=== PATIENT | female | born 1935 | race African-American/Black ===

== ENCOUNTER 2018-10-09 16:18 | Inpatient (IN) ==
--- NOTE | 2018-10-09 17:43 | Diag Imaging Result Doc PS360 ---
EXAM: CT HEAD W/O CONTRAST HISTORY: possible CVA TECHNIQUE: CT head without contrast COMPARISON: None. FINDINGS: No parenchymal hemorrhage. No epidural or subdural hematoma. No subarachnoid hemorrhage. There is atrophy with chronic microvascular ischemic changes. Hypodense area measuring approximately 12 mm near the anterior horn of the right internal capsule may represent a recent infarct. No mass identified on this noncontrasted exam. No hydrocephalus. No sinus opacification. IMPRESSION: 1.No hemorrhage 2.Mild atrophy with mild chronic microvascular ischemic changes 3.Possible recent small infarct near the anterior horn of the right internal capsule. A follow-up MRI may be beneficial. This exam was performed using automated exposure control, adjustment of mA or kV according to patient size, and/or use of iterative reconstruction technique. Electronically signed by Giovanny Brown 10/09/2018 5:40 PM
[2018-10-09 18:20] LABS: BASO# 0.03 X1000 (0.0-0.2); BASO% 0.4 % (0.0-0.8); EOS# 0.04 X1000 (0.0-0.7); EOS% 0.5 % (0.0-10.0); HEMATOCRIT 27.6 % (37.0-47.0); HEMOGLOBIN 8.4 g/dL (12.0-16.0); IMM GRAN# 0.02 X1000 (0.0-0.04); IMM GRAN% 0.2 % (0.0-0.5); LYMPH# 1.83 X1000 (1.2-3.4); LYMPH% 22.4 % (20.5-51.1); MCH 24.4 PG (27-31); MCHC 30.4 g/dL (33-37); MCV 80.2 FL (81-99); MONO# 0.54 X1000 (0.11-0.59); MONO% 6.6 % (1.7-9.3); MPV 8.8 FL (7.4-10.4); NEUT# 5.72 X1000 (1.4-6.5); NEUT% 69.9 % (42.2-75.2); PLT 535 X1000 (130-400); RBC 3.44 XMIL (4.2-5.4); RDW 15.3 % (11.5-14.5); WBC 8.18 X1000 (4.8-10.8)
[2018-10-09 18:37] LABS: AGAP 17; ALBUMIN 4.4 g/dL (3.5-5.0); ALKALINE PHOSPHATASE 43 U/L (32-104); BUN 10 mg/dL (8-22); CALCIUM 9.4 mg/dL (8.8-10.2); CHLORIDE 102 mmol/L (98-107); COSMO 286; CREATININE 0.8 mg/dL (0.5-0.9); ESTIMATED GFR > 60; GLUCOSE 99 mg/dL (70-104); GOT 32 U/L (10-30); GPT 15 U/L (10-36); SODIUM 144 mmol/L (136-145); TCO2 25 mmol/L (25-35); TOTAL PROTEIN 7.9 g/dL (6.3-8.3)
[2018-10-09 18:41] LABS: INR 0.97; PROTIME 13.4 Seconds (11.0-16.0)
[2018-10-09 18:42] LABS: PTT 36.7 Seconds (22.3-41.8)
--- NOTE | 2018-10-09 20:27 | EKG Report ---
Test Performed on : 10/09/2018 5:57:20 PM Test Reason : CVA Blood Pressure : / mmHG Vent. Rate : 090 BPM Atrial Rate : 090 BPM P-R Int : 136 ms QRS Dur : 078 ms QT Int : 378 ms P-R-T Axes : 000 -05 -15 degrees QTc Int : 462 ms Sinus rhythm. with premature supraventricular complexes. and with occasional premature ventricular co mplexes. Possible Left atrial enlargement Low voltage QRS Nonspecific T wave abnormality Abnormal ECG When compared with ECG of 09-JUN-2010 13:01, premature ventricular complexes. are now present premature supraventricular complexes. are now present Inverted T waves have replaced nonspecific T wave abnormality in Inferior leads T wave inversion now evident in Lateral leads Unconfirmed Result
[2018-10-09] MEDS ORDERED: TYLENOL PO PRN (22:15)
[2018-10-09] MEDS ORDERED: ZOFRAN IV PRN (22:15)
--- NOTE | 2018-10-09 22:17 | HISTORY AND PHYSICAL ---
CHIEF COMPLAINT: Difficulty with speech and wobbly walking. HISTORY OF PRESENT ILLNESS: This is an 83-year-old female who presented today with dysarthria, left-sided facial droop, and abnormal speech. She stated in the ER she awoke this morning with symptoms, but she told me she had symptoms the day before, the . There was no headache, chest pain. She has no previous history of CVA or TIA. She does have a history possibly of some hypertension but no major medical problems. No family history of CVA. Her persistence in speech deficits, and she also reports some difficulty walking with listing to the left side but sometimes the right. Clinically, was felt to have a possible stroke. Workup in the ER was negative. However, her head CT did show possibly an early stroke in the right internal capsule. The patient was admitted for CVA. PAST MEDICAL HISTORY: Again, unclear if she has any history of hypertension, but no diabetes, no previous stroke. PAST SURGICAL HISTORY: She has had a hysterectomy. No other major surgeries. SOCIAL HISTORY: No tobacco or ethanol. She has a remote history of tobacco. ALLERGIES: No known drug allergies. MEDICATIONS: None are listed. I am not clear if she has anything, but I do not think she takes regular medications. REVIEW OF SYSTEMS: There is no weight loss. No appetite change. No chest pain. No palpitations. No shortness of breath. No nausea, vomiting, diarrhea, hematochezia. No dysuria. Otherwise negative [id number] review of systems. PHYSICAL EXAMINATION: VITAL SIGNS: Blood pressure is 177/81, heart rate 95, respiratory rate 16, temperature 98.6 degrees. GENERAL: A well-developed female in no acute distress. HEENT: Head exam is normocephalic atraumatic. Eye exam: Pupils equal, round, reactive to light. Sclerae are anicteric. ENT: Oropharynx is moist and clear. NECK: Supple. Carotid, no bruits appreciated. PULMONARY: Bilateral breath sounds clear to auscultation. GASTROINTESTINAL: Soft, nontender, nondistended. Bowel sounds are positive. NEUROLOGICAL: Some left facial droop, dysarthria with speech, but no other focal cranial nerve deficits. Extraocular movements were intact. Tongue deviated to the left. MUSCULOSKELETAL: 4 to 5 on all 4 extremities, although she seemed a bit weaker on the left side. SKIN: No rashes noted. LABORATORY DATA: White count 8, hemoglobin 8, hematocrit 27, MCV 80. Coags were normal. CMP was normal except for AST was mildly elevated at 32. IMAGING STUDIES: Head CT showed possibly early infarct in the right internal capsule. EKG showed some T wave inversion in III and AVF, otherwise unremarkable. ASSESSMENT: This is a pleasant, 83-year-old female who presents with dysarthria, tongue deviation, and ataxia and then possibly an acute ischemic cerebrovascular accident in the right internal capsule. 1. Cerebrovascular accident. We will continue aspirin. Permissive hypertension. Continue IV fluids. Pursue MRI for better imaging of stroke versus other process. Obtain echo. Obtain carotid, neuro checks, and follow closely. She requests a neurology evaluation so we will attempt to set that up. 2. Microcytic anemia. We will check her iron stores and then also get Hemoccult on her stools and follow closely. 3. Hypertension. Again, allow permissive hypertension unless her blood pressure gets extremely elevated in the setting of acute CVA. DISPOSITION: Pending her clinical setting. cc: MD Jonah Rader MD
[2018-10-09] MEDS: LIPITOR PO SCH (22:50)
[2018-10-09] MEDS: NS 1,000 ML IV SCH (22:50)
[2018-10-10 07:57] LABS: BASO# 0.02 X1000 (0.0-0.2); BASO% 0.3 % (0.0-0.8); EOS# 0.08 X1000 (0.0-0.7); EOS% 1.3 % (0.0-10.0); HEMATOCRIT 24.5 % (37.0-47.0); HEMOGLOBIN 7.2 g/dL (12.0-16.0); IMM GRAN# 0.01 X1000 (0.0-0.04); IMM GRAN% 0.2 % (0.0-0.5); LYMPH# 1.92 X1000 (1.2-3.4); LYMPH% 30.6 % (20.5-51.1); MCH 23.8 PG (27-31); MCHC 29.4 g/dL (33-37); MCV 80.9 FL (81-99); MONO# 0.54 X1000 (0.11-0.59); MONO% 8.6 % (1.7-9.3); MPV 8.9 FL (7.4-10.4); PLT 428 X1000 (130-400); RBC 3.03 XMIL (4.2-5.4); RDW 15.2 % (11.5-14.5); WBC 6.27 X1000 (4.8-10.8)
[2018-10-10 08:01] LABS: AGAP 13; ALBUMIN 3.4 g/dL (3.5-5.0); ALKALINE PHOSPHATASE 33 U/L (32-104); BUN 9 mg/dL (8-22); CALCIUM 8.5 mg/dL (8.8-10.2); CHLORIDE 106 mmol/L (98-107); COSMO 283; CREATININE 0.7 mg/dL (0.5-0.9); ESTIMATED GFR > 60; GLUCOSE 84 mg/dL (70-104); GOT 24 U/L (10-30); GPT 11 U/L (10-36); IRON SATURATION 9 %; POTASSIUM 3.6 mmol/L (3.5-5.1); SODIUM 143 mmol/L (136-145); TCO2 24 mmol/L (25-35); TIBC 334 ug/dL; TOTAL IRON 29 ug/dL (49-151); TOTAL PROTEIN 6.1 g/dL (6.3-8.3); UNBOUND IRON 305 ug/dL (112-346)
[2018-10-10] MEDS ORDERED: LOVENOX SUBQ SCH (09:00)
--- NOTE | 2018-10-10 11:55 | Diag Imaging Result Doc PS360 ---
MRI BRAIN W/WO CONTRAST - 10/10/2018 INDICATION: cva COMPARISON: None FINDINGS: There is restricted diffusion in the small recent lacunar infarction at the right basal ganglia. This involves the caudate head, internal capsule at the anterior limb and genu, and extends down to the striata. There is some chronic microvascular disease in the periventricular cerebral white matter. No mass effect or hemorrhage. No abnormal contrast enhancement. IMPRESSION: MRI confirms recent lacunar infarction in the right basal ganglia region. Electronically signed by Titi Piper 10/10/2018 11:53 AM
[2018-10-10] MEDS: ASPIRIN PO SCH (12:04)
[2018-10-10 12:44] LABS: FERRITIN 8 ng/mL (13-150)
--- NOTE | 2018-10-10 14:38 | PROGRESS NOTE ---
DATE: 10/10/2018 SUBJECTIVE: Patient has no major complaints. OBJECTIVE: Blood pressure is 135/72, heart rate of 81, respiratory rate of 20, temperature was 98, 100% on room air.Cardiovascular: Regular rate and rhythm. Pulmonary: Bilateral breath sounds. Clear to auscultation. Genitourinary: Soft, nontender. Neurologic: She still has her dysarthria issues. LABORATORY: Her white count is 6, hemoglobin and hematocrit 7 and 24, platelets 428,000. Basic was normal. She does have low iron parameters consistent with iron deficiency, so we will initiate therapy. PROBLEM LIST: 1. Acute ischemic CVA, lacunar infarct confirmed on MRI. Waiting on carotid and echo. They have been completed, but I do not have results. We will pursue a CT angiogram. Continue permissive hypertension. Aspirin, statin and follow. 2. Symptomatic anemia, with iron deficiency. I am going to hold her Lovenox. Will just do sequentials and initiate iron supplementation. DISPOSITION: Pending her clinical status and therapy. cc: Alonzo Arriaga MD
[2018-10-10] MEDS: NS 1,000 ML IV SCH ×2 (14:44→22:15)
--- NOTE | 2018-10-10 14:49 | Extremity Venous Study ---
EXAM: Carotid Ultrasound HISTORY: cva TECHNIQUE: Grayscale, duplex, and color Doppler evaluation was performed of the carotid arteries bilaterally. COMPARISON: The FINDINGS: There is no significant atherosclerotic plaque. There are no velocity elevations to suggest hemodynamically significant carotid artery stenosis on the right. Maximal velocity is 110 cm/s. On the left there is elevated systolic velocity distal internal carotid artery 153 cm/s. The vessels are deep and tortuous however. Findings are consistent with a stenosis in the 50-69% range. ICA/CCA ratios are within normal limits. Bilateral vertebral arterial flow is antegrade. IMPRESSION: Tortuous vessels bilaterally. Elevated left internal carotid artery velocity suggestive of stenosis in the 50-69% range. Electronically signed by Mariam Deras 10/10/2018 2:46 PM
[2018-10-10] MEDS ORDERED: VENOFER 200 MG in NS 150 ML IV ONE (15:00)
--- NOTE | 2018-10-10 16:37 | Diag Imaging Result Doc PS360 ---
EXAM: CT ANGIOGRAM HEAD HISTORY: cva TECHNIQUE: CT angiogram of the brain with IV contrast with 3-D postprocessing. COMPARISON: None. FINDINGS: There is atherosclerotic calcification within the cavernous ICAs bilaterally. The intracranial carotid arteries, MCAs, ACAs, rn oncology research, vertebral arteries, and basilar are patent. No vessel cut off or aneurysm is identified. IMPRESSION: Mild intracranial atherosclerotic disease. No large vessel occlusion. This exam was performed using automated exposure control, adjustment of mA or kV according to patient size, and/or use of iterative reconstruction technique. Electronically signed by Mariam Deras 10/10/2018 4:34 PM
--- NOTE | 2018-10-10 17:14 | CONSULTATION ---
DATE OF CONSULTATION: 10/10/2018 REASON FOR CONSULTATION: Stroke. HISTORY OF PRESENT ILLNESS: This is an 83-year-old right-handed female without significant past medical history who presents with stroke. History is from the patient and chart review. The patient says that she began to have symptoms some time on Monday, two days ago. Those symptoms consisted of slurred speech. I believe yesterday she began to have left-sided facial numbness, is what she initially says, and later says a feeling of inability to control the left lower face. Days before, she felt wobbly when she tried to walk. She decided to come to the emergency room yesterday for evaluation. She denied headache or other neurologic symptoms. She did not feel as though she was significantly weak on the left side or elsewhere. No chest pain. No shortness of breath. No loss of consciousness. Head CT on arrival did show hypodensity within the right internal capsular region. MRI performed today showed recent lacunar infarct in the right basal ganglia. Her LDL is 125. HDL 68. Triglycerides of 60. She has been started on low dose aspirin and high potency statin therapy. She is on her way to go down to [facility] after my exam. PAST MEDICAL HISTORY: No significant medical history. There was no personal history of prior stroke. No history of seizure. SOCIAL HISTORY: She denies tobacco, alcohol, or illicits. FAMILY HISTORY: No strokes or seizures. ALLERGIES: No known drug allergies listed in the chart. CURRENT MEDICATIONS: Lipitor 40 mg daily, aspirin 81 mg daily. REVIEW OF SYSTEMS: A balance of 12 was conducted and is otherwise negative except that detailed in the HPI. PHYSICAL EXAMINATION: Vital Signs: She is been afebrile. Blood pressure was 168/93 on admission, today 135/72, pulse 81. Respirations 20, 100% on room air. Ms. Hernandez is supine in bed with the head of bed elevated. She is awake, alert, and oriented. No acute distress. She follows simple and complex commands. Preserved left, right, and digit distinction. No language disturbance on bedside testing. She has some significant dysarthria. Pupils are equal, round, and reactive to light. Gaze conjugate Extraocular movements are intact. Visual little intact to direct confrontational testing. She can hear. She has a left lower facial droop. Facial sensation reported intact. Tongue protrudes to the left. Shoulder shrug is full. Tone is symmetric in the limbs. There is a very subtle left hemiparesis. I can just overcome her left deltoid, triceps, and knee flexion on the left. Otherwise, her strength appears 5/5 in the arms and legs. Sensation reported symmetric in the arms and legs to light touch and pinprick. [id number] intact. Rapid alternating movements intact. HTS intact. Reflexes are 1 to 2+ symmetric throughout. No clonus. Plantar response is flexure on the right and equivocal to up on the left. I did not test her gait. DIAGNOSTIC DATA: MRI of the brain with and without contrast was personally reviewed. It did show an acute lacunar infarct in the right basal ganglia. Head CT also showing hypodensity of the right basal ganglia region. This was also personally reviewed. There is no hemorrhage. Normal white count and coags. Normal sodium, BUN, and creatinine. Blood sugar is 80s and 90s. Triglycerides 60, LDL 125, HDL 68. ASSESSMENT AND PLAN: Right basal ganglia infarct with dysarthria and very subtle left hemiparesis. I agree with the typical stroke workup as you are doing. I would make sure that Speech Therapy clears her for safety in taking p.o. diet. Agree with low-dose aspirin and high potency statin therapy. Agree with cautious blood pressure management as you are doing and seeing if that comes down over time. Avoid hypotension. The patient has gone down for a CTA of the head and I think that is reasonable. Typically this type of infarct is related to chronic hypertension but I am not sure she had a history of that or not. Physical Therapy, Occupational Therapy, and Speech Therapy. Thank you for the consultation. cc: MD Alonzo Baig MD [facility]ITAL[facility]
[2018-10-10] MEDS: LIPITOR PO SCH (22:15)
[2018-10-11] MEDS: NS 1,000 ML IV SCH ×2 (02:35→05:01)
[2018-10-11 07:32] LABS: AGAP 12; BUN 11 mg/dL (8-22); CALCIUM 8.5 mg/dL (8.8-10.2); CHLORIDE 108 mmol/L (98-107); COSMO 286; CREATININE 0.8 mg/dL (0.5-0.9); ESTIMATED GFR > 60; GLUCOSE 86 mg/dL (70-104); POTASSIUM 3.9 mmol/L (3.5-5.1); SODIUM 144 mmol/L (136-145); TCO2 24 mmol/L (25-35)
[2018-10-11 08:15] LABS: BASO# 0.03 X1000 (0.0-0.2); BASO% 0.5 % (0.0-0.8); EOS# 0.11 X1000 (0.0-0.7); EOS% 1.7 % (0.0-10.0); HEMATOCRIT 23.7 % (37.0-47.0); IMM GRAN# 0.01 X1000 (0.0-0.04); IMM GRAN% 0.2 % (0.0-0.5); LYMPH# 1.73 X1000 (1.2-3.4); LYMPH% 26.7 % (20.5-51.1); MCH 24.2 PG (27-31); MCHC 29.5 g/dL (33-37); MONO# 0.56 X1000 (0.11-0.59); MONO% 8.7 % (1.7-9.3); MPV 8.8 FL (7.4-10.4); NEUT# 4.03 X1000 (1.4-6.5); NEUT% 62.2 % (42.2-75.2); PLT 401 X1000 (130-400); RBC 2.89 XMIL (4.2-5.4); RDW 15.4 % (11.5-14.5); WBC 6.47 X1000 (4.8-10.8)
[2018-10-11] MEDS: ASPIRIN PO SCH (09:25)
[2018-10-11] MEDS ORDERED: LACTULOSE PO ONE (10:37)
[2018-10-11] MEDS: ICAR-C PO SCH (11:29)
--- NOTE | 2018-10-11 13:45 | ECHO REPORT ---
ORDER DATE: 10/10/2018 ECHOCARDIOGRAPHIC MEASUREMENTS: 1. Interventricular septum 1.0. 2. Left ventricular posterior wall 1.0. 3. Diastolic diameter 4.0. 4. Left atrium 3. 5. Aorta 3.5. SUMMARY: 1. Aortic valve leaflets were trileaflet. 2. Pulmonic valve was normal. There is trace pulmonary regurgitation. 3. There is mild aortic sclerosis opening normally, aortic valve leaflets. 4. Mitral valve was normal. There is mitral annular calcification. 5. Tricuspid valve was normal. 6. There is biatrial enlargement. 7. Normal left ventricular cavity size. Estimated ejection fraction of 65%. 8. Doppler studies revealed mild mitral regurgitation. Peak velocity across the aortic valve less than 2 m/sec. By Doppler studies, there is no aortic stenosis or regurgitation. 9. There is mild tricuspid regurgitation. Peak velocity across the tricuspid valve was less than 2 m/sec. 10. There is mild pulmonary regurgitation. 11. Technically suboptimal study. Poor acoustic window. 12. There is no pericardial effusion or obvious intracardiac mass or thrombus seen. cc: MD Alonzo Beltrán MD
[2018-10-11] MEDS ORDERED: COLACE LIQUID ONE ×2 (14:33)
[2018-10-11] MEDS: LACTULOSE PO SCH ×2 (15:11→21:42)
[2018-10-11] MEDS: MIRALAX PO SCH (15:11)
[2018-10-11] MEDS: LIPITOR PO SCH (21:42)
[2018-10-12 06:40] LABS: BASO# 0.04 X1000 (0.0-0.2); BASO% 0.5 % (0.0-0.8); EOS# 0.15 X1000 (0.0-0.7); EOS% 1.7 % (0.0-10.0); HEMATOCRIT 27.7 % (37.0-47.0); HEMOGLOBIN 8.2 g/dL (12.0-16.0); IMM GRAN# 0.01 X1000 (0.0-0.04); IMM GRAN% 0.1 % (0.0-0.5); LYMPH# 2.52 X1000 (1.2-3.4); LYMPH% 28.8 % (20.5-51.1); MCH 23.6 PG (27-31); MCHC 29.6 g/dL (33-37); MCV 79.6 FL (81-99); MONO% 9.1 % (1.7-9.3); MPV 8.9 FL (7.4-10.4); NEUT# 5.23 X1000 (1.4-6.5); NEUT% 59.8 % (42.2-75.2); PLT 380 X1000 (130-400); RBC 3.48 XMIL (4.2-5.4); RDW 16.5 % (11.5-14.5); WBC 8.75 X1000 (4.8-10.8)
[2018-10-12] MEDS: ICAR-C PO SCH (08:37)
[2018-10-12] MEDS: ASPIRIN PO SCH (08:37)
[2018-10-12] MEDS: MIRALAX PO SCH (08:38)
[2018-10-12] MEDS: LACTULOSE PO SCH (08:38)
[2018-10-12 15:05] VITALS: BP 150/61
--- NOTE | 2018-10-13 09:42 | DISCHARGE SUMMARY ---
ADMISSION DATE: 10/09/2018 DISCHARGE DATE: 10/12/2018 CONSULTATIONS: Dr. Malorie Ruiz with Neurology. PERTINENT PROCEDURES: 1. Head CT: No hemorrhage. Mild atrophy with mild chronic microvascular ischemic changes, possible recent small infarct near the anterior horn of the right internal capsule. 2. Brain MRI: Confirms recent myocardial infarction in the right basal ganglia region. 3. Echocardiogram: An EF of 65%. Mild mitral regurgitation, mild tricuspid regurgitation and mild pulmonary regurgitation. 4. Carotid Dopplers: Torturous vessels bilaterally. Elevated left internal carotid artery velocity suggestive of stenosis in the 50 to 69 percent range. 5. Head CTA: Mild intracranial atherosclerotic disease. No large vessel occlusion. DISCHARGE DIAGNOSES: 1. Right basal ganglia infarct with dysarthria, very subtle left hemiparesis. The patient has undergone stroke workup. We will continue with high-dose statin, low-dose aspirin. She is not on any antihypertensive medications. 2. The patient has been evaluated by physical therapy, occupational therapy and speech therapy. Currently tolerating a healthy heart diet and is anxious to get home. 3. Symptomatic anemia with iron deficiency. We will continue with Icar C. She was given 1 unit of packed red blood cells. She will need to follow up with Hematology on an outpatient basis. 4. Hypertension. Patient is not on any home medications at home. HOSPITAL COURSE: Briefly, Ms. Hernandez is an 83-year-old female, who presented to the ED with dysarthria, left-sided facial droop, abnormal speech. She had woke up with the symptoms in the morning. She underwent a head CT that showed a possible early stroke. She underwent a brain MRI that confirmed recent lacunar infarct in the right basal ganglia region. She underwent a normal workup with echocardiogram, carotid Dopplers, started on aspirin, avoided any hypotension. She also has had a head CTA. She was seen by Cardiology who agreed with aspirin and high-dose statin therapy. She has worked with physical therapy, occupational therapy and evaluated by speech therapy. She is now tolerating a healthy heart diet. She is anxious to return home and wants to follow up with her PCP, Dr. Jonah Del Angel. VITAL SIGNS: At the time of her discharge, temperature is 98.6 degrees, heart rate 79, respirations 20, blood pressure 139/61, O2 is 100% on room air. DISCHARGE DIET: Healthy heart. DISCHARGE MEDICATIONS: 1. Lipitor 40 mg p.o. at bedtime. 2. Aspirin 325 mg p.o. daily. 3. Icar C 1 each p.o. daily. FOLLOWUP: Ms. Hernandez is being discharged home with her . She needs to follow up with her primary care provider, Dr. Jonah Del Angel, within a week. She is to take all medications as prescribed. She can return to the ER or call 911 for any worsening of symptoms. Dictated by JOHN Weston for Alonzo Arriaga MD cc: MD Jonah Rader MD Sammy Becdach, MD
== END 2018-10-12 13:44 | disposition home or self-care (01) | DRG 65 ==
LOC: P.ED 16:18 → P.MEDSURG 21:34
PROVIDERS: ADMIT Internal Medicine; ATTEND Internal Medicine
CPT/HCPCS: 36430; 70450; 70496; 70553; 80048; 80053; 80061; 82607; 82728; 82746; 83540; 83550; 83721; 85025; 85610; 85730; 86850; 86900; 86901; 86920; 92523; 93005; 93306; 93880; 97110; 97161; 97530; 99285; A9270; J1650; J1756; J7030; P9016; Q9967

== ENCOUNTER 2018-10-25 14:44 | Inpatient (IN) ==
[2018-10-25] MEDS ORDERED: ZOSYN 3.375 GM in NS 50 ML IV ONE ×2 (15:29→17:00)
[2018-10-25] MEDS ORDERED: NORCURON ONE (16:10)
[2018-10-25] MEDS ORDERED: AMIDATE ONE (16:10)
[2018-10-25] MEDS ORDERED: FENTANYL ONE (16:10)
[2018-10-25] MEDS ORDERED: XYLOCAINE-MPF 2% ONE (16:10)
[2018-10-25] MEDS ORDERED: STERILE WATER INJ. ONE (16:10)
[2018-10-25] MEDS ORDERED: QUELICIN (DOSE) ONE (16:10)
[2018-10-25] MEDS ORDERED: SODIUM CHLORIDE 0.9% 10 ML ONE ×2 (16:11→17:58)
[2018-10-25 16:43] LABS: BASO# 0.01 X1000 (0.0-0.2); BASO% 0.1 % (0.0-0.8); EOS# 0.05 X1000 (0.0-0.7); EOS% 0.5 % (0.0-10.0); HEMATOCRIT 34.1 % (37.0-47.0); HEMOGLOBIN 10.2 g/dL (12.0-16.0); IMM GRAN# 0.02 X1000 (0.0-0.04); IMM GRAN% 0.2 % (0.0-0.5); LYMPH% 9.8 % (20.5-51.1); MCH 24.9 PG (27-31); MCHC 29.9 g/dL (33-37); MCV 83.2 FL (81-99); MONO# 0.22 X1000 (0.11-0.59); MONO% 2.2 % (1.7-9.3); MPV 8.8 FL (7.4-10.4); NEUT# 8.89 X1000 (1.4-6.5); NEUT% 87.2 % (42.2-75.2); PLT 400 X1000 (130-400); RDW 17.9 % (11.5-14.5); WBC 10.19 X1000 (4.8-10.8)
[2018-10-25 16:52] LABS: AGAP 11; BUN 10 mg/dL (8-22); CALCIUM 8.3 mg/dL (8.8-10.2); CHLORIDE 106 mmol/L (98-107); COSMO 280; CREATININE 0.7 mg/dL (0.5-0.9); ESTIMATED GFR > 60; GLUCOSE 96 mg/dL (70-104); POTASSIUM 4.3 mmol/L (3.5-5.1); SODIUM 141 mmol/L (136-145); TCO2 24 mmol/L (25-35)
[2018-10-25] MEDS ORDERED: MARCAINE 0.25% PF ONE (16:53)
[2018-10-25] MEDS ORDERED: SODIUM CHLORIDE 0.9% 30 ML ONE (16:53)
[2018-10-25] MEDS ORDERED: EXPAREL 1.3% ONE (16:53)
--- NOTE | 2018-10-25 17:15 | Diag Imaging Result Doc PS360 ---
EXAM: FLAT/UPRIGHT ABD/1 VIEW CHEST HISTORY: Perforated bowel/secum TECHNIQUE: Flat and upright with chest, three views COMPARISON: None. FINDINGS: The lungs are well expanded. No pneumonia. No cardiomegaly. There is free air beneath the diaphragm. No organomegaly. No bowel obstruction. No abnormal abdominal calcifications. IMPRESSION: Free air beneath the diaphragm consistent with the clinical diagnosis of perforated bowel. Electronically signed by Giovanny Brown 10/25/2018 5:13 PM
[2018-10-25 17:23] LABS: BANDS 1 % (0-1); EOS 2 % (1-10); LYMPHS 9 % (21-51); MONO 2 % (1-9); SEGS 85 % (42-75)
[2018-10-25 17:24] LABS: ANISOCYTOSIS 1+
--- NOTE | 2018-10-25 17:28 | HISTORY AND PHYSICAL ---
DATE: 10/25/2018 HISTORY OF PRESENT ILLNESS: This is an 83-year-old female patient of Dr. Santiago, who has recently had a CVA. She was found to be anemic and was undergoing colonoscopy by Dr. 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 He attempted coagulation of this and unfortunately she developed abdominal pain and distention with pain and the x-ray showing free air. She was transferred as a direct admit for management of this. MEDICAL HISTORY: CVA and hypertension and anemia. SURGICAL HISTORY: She has had a hysterectomy through a lower midline, left mastectomy. SOCIAL HISTORY: She is . She denies current tobacco, alcohol, or drugs. She remains active despite her stroke which left her with somewhat of an aphasia and left a facial droop. MEDICATIONS: Significant for aspirin and Lipitor. FAMILY HISTORY: Reviewed and noncontributory. REVIEW OF SYSTEMS: Ten points negative. PHYSICAL EXAMINATION: Cardiovascular: She is not tachycardic. General: She is alert, in no acute distress. Pulmonary: No increased work of breathing. Abdomen: Distended with some guarding and tenderness throughout. Integument: Warm and dry. Psychiatric: Appropriate affect. Neurologic: Left facial droop with some slurring of her speech, but overall no other focal deficits. Lymphatic: No cervical or axillary adenopathy. DIAGNOSTIC STUDIES: Imaging and laboratory workup are pending. 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 I have discussed the findings with both the patient and her and have recommended exploration with definitive management of this, as she does have worsening abdominal pain despite several hours of observation. I have talked to Dr. Santiago about the x- ray [*]that was confirmed with our radiologist to have free air under the diaphragm and a significant amount. I am repeating these images here. Otherwise, we will go the operating room this afternoon. We will start her on Zosyn. We discussed the risks of bleeding, infection, damage to surrounding structures, potential of an ostomy although low, and other anesthetic- related complications. She understands and consents. cc: Arnaldo Fine MD
[2018-10-25] MEDS ORDERED: ZOFRAN ONE (17:49)
[2018-10-25] MEDS ORDERED: ROBINUL ONE ×2 (17:56→18:26)
[2018-10-25] MEDS ORDERED: NEOSTIGMINE ONE (17:56)
[2018-10-25] MEDS ORDERED: MORPHINE ONE (17:58)
[2018-10-25 18:13] LABS: URINE SOURCE CATH
[2018-10-25 18:19] LABS: BILIRUBIN URINE NEGATIVE (NEGATIVE); BLOOD URINE NEGATIVE (NEGATIVE); COLOR YELLOW; GLUCOSE URINE NEGATIVE (NEGATIVE); KETONE URINE 60 mg/dL (NEGATIVE); LEUKOCYTES URINE NEGATIVE (NEGATIVE); NITRITE URINE NEGATIVE (NEGATIVE); PROTEIN URINE NEGATIVE (NEGATIVE); SP GRAVITY URINE 1.012; TURBIDITY URINE CLEAR (CLEAR); UR EPITHELIAL CELLS <10 /HPF (<10); URINE BACTERIA NEGATIVE /HPF; URINE RBC <10 /HPF (<10); URINE WBC <10 /HPF (<10); UROBILINOGEN URINE NORMAL (NORMAL)
[2018-10-25] MEDS ORDERED: OFIRMEV 1000 MG/ISOTONIC SOLN 1,000 MG/100 ML BOTTLE ONE (18:58)
[2018-10-25] MEDS: DILAUDID ONE ×3 (19:14→19:24)
[2018-10-25] MEDS ORDERED: LR 1,000 ML ONE (19:26)
[2018-10-25] MEDS ORDERED: LABETALOL IV PRN (19:45)
[2018-10-26] MEDS: OFIRMEV 1000 MG/ISOTONIC SOLN 1,000 MG/100 ML BOTTLE IV SCH ×3 (01:12→12:36)
[2018-10-26] MEDS: LIPITOR PO SCH ×2 (02:40→21:58)
[2018-10-26] MEDS: PERIDEX MT SCH ×3 (02:41→22:04)
--- NOTE | 2018-10-26 03:53 | OPERATIVE NOTE ---
PROCEDURE DATE: 10/25/2018 PREOPERATIVE DIAGNOSIS: Cecal perforation. POSTOPERATIVE DIAGNOSIS: Cecal perforation. PROCEDURE PERFORMED: Exploratory laparotomy with cecectomy. SPECIMEN: Cecum. ANESTHESIA: General with a TAP block. COMPLICATIONS: None. ESTIMATED BLOOD LOSS: 30 mL. INDICATIONS FOR PROCEDURE: This is an 83-year-old female who has had a history of a bleeding cecal arteriovenous malformation. She underwent attempts at argon beam coagulation of this AVM to prevent further bleeding and treat her anemia, and unfortunately sustained a cecal perforation at this location. She was transferred as a direct admission for management with free air noted on her x-ray and worsening abdominal examination. OPERATIVE FINDINGS: A very small focal perforation of the cecum. Otherwise normal small bowel, stomach and colon in the remainder of her abdomen. There was no contamination only a minimal amount of air noted on entering the abdomen. DESCRIPTION OF PROCEDURE: The risks, benefits and alternatives were discussed with the patient and her family. She consented to the procedure. She was seen preoperatively and surgical site was confirmed. He was taken to the operating room and placed in the supine position, general anesthesia was induced. A TAP block was performed by Anesthesia, for details please see the dictated operative note. A Watkins catheter was placed. Her abdomen was prepped with chlorhexidine solution and draped in the usual fashion. After a time-out, a midline incision was made in the supraumbilical midline away from her previous lower midline scar and we extended this inferiorly. There was some omental adhesions and we took down protecting the small bowel. At this point we began systematically inspecting the abdomen and we eviscerated the small bowel, there is no injury here and we were able to quickly identify a cecal perforation on the anterior surface. It is very focal and the edges were healthy. We closed this with a single stitch to prevent further contamination. The remainder of the colon and rectum appeared normal. We mobilized the terminal ileum which was adhesed in the right lower quadrant, and the appendix was retrocecal. We mobilized this up and mobilized the right colon to bring this out into our operative field. We identified the perforation and again [*] noted AVMs that were adjacent to the appendiceal orifice, proximal to this ileocecal valve. We then used an 80-mm blue load stapler and removed the cecum in its entirety flush with the ileocecal valve ensuring not to encroach upon this, we did this successfully. We then imbricated the staple line with interrupted 3-0 Vicryl sutures. We placed this back in the right lower quadrant. We irrigated the abdomen copiously, noting hemostasis. We changed our gloves after irrigating the abdomen and closed the fascia with a running #1 looped PDS suture. The skin was closed after irrigating the superficial wound. Surgical clips and a gauze Medipore dressing was applied. She was awakened and transferred to recovery. I spoke with the family. cc: Arnaldo Fine MD
[2018-10-26] MEDS: LR 1,000 ML IV SCH ×2 (06:35→16:55)
[2018-10-26 07:52] LABS: IMM GRAN% 0.3 % (0.0-0.5)
[2018-10-26 08:08] LABS: AGAP 14; BUN 9 mg/dL (8-22); CHLORIDE 105 mmol/L (98-107); COSMO 275; CREATININE 0.8 mg/dL (0.5-0.9); ESTIMATED GFR > 60; GLUCOSE 81 mg/dL (70-104); POTASSIUM 4.2 mmol/L (3.5-5.1); SODIUM 139 mmol/L (136-145); TCO2 20 mmol/L (25-35)
[2018-10-26 09:39] LABS: BASO# 0.03 X1000 (0.0-0.2); BASO% 0.2 % (0.0-0.8); EOS% 0.6 % (0.0-10.0); HEMATOCRIT 33.7 % (37.0-47.0); HEMOGLOBIN 10.1 g/dL (12.0-16.0); IMM GRAN# 0.04 X1000 (0.0-0.04); LYMPH# 1.22 X1000 (1.2-3.4); LYMPH% 7.9 % (20.5-51.1); MCH 25.4 PG (27-31); MCV 84.7 FL (81-99); MONO# 0.47 X1000 (0.11-0.59); MPV 8.7 FL (7.4-10.4); NEUT# 13.64 X1000 (1.4-6.5); RBC 3.98 XMIL (4.2-5.4); RDW 18.2 % (11.5-14.5)
[2018-10-26 09:42] LABS: PLT 326 X1000 (130-400)
[2018-10-26 10:08] LABS: BANDS 4 % (0-1); LYMPHS 12 % (21-51); MONO 2 % (1-9); SEGS 82 % (42-75)
[2018-10-26] MEDS: ZOSYN 3.375 GM in NS 50 ML IV SCH ×4 (10:54→23:18)
[2018-10-26] MEDS: LOVENOX SUBQ SCH (10:54)
--- NOTE | 2018-10-26 14:28 | GENERAL SURGERY PROGRESS NOTE ---
DATE: 10/26/2018 SUBJECTIVE: Hemodynamically stable overnight. Neurologically, she is at her baseline. Abdomen is soft. She is not requiring pain medicine other than the [*]. OBJECTIVE: Vital Signs: On exam, no fevers. Pulse 86, blood pressure 130/42, oxygen saturation 100 percent. Abdomen: Soft, appropriately tender. Dressing is intact. LABORATORY DATA: I reviewed her labs. White count is 15, hematocrit 33, creatinine 0.8, potassium 4.2. ASSESSMENT/PLAN: An 83-year-old female with cecal perforation status post cecectomy. She is doing well. Keep her on clear liquids today. Discontinue her Watkins. She is on prophylactic Lovenox. We will keep her blood pressure under control. cc: Arnaldo Fine MD
[2018-10-26] MEDS: MORPHINE IV PRN (19:34)
[2018-10-26] MEDS: ZOFRAN IV PRN (19:34)
[2018-10-27] MEDS: ZOSYN 3.375 GM in NS 50 ML IV SCH ×3 (05:01→19:02)
[2018-10-27] MEDS: LOVENOX SUBQ SCH (10:06)
[2018-10-27] MEDS: LR 1,000 ML IV SCH (10:06)
[2018-10-27] MEDS: PERIDEX MT SCH ×2 (10:06→20:33)
[2018-10-27] MEDS ORDERED: LR 1,000 ML IV SCH (10:45)
--- NOTE | 2018-10-27 15:01 | GENERAL SURGERY PROGRESS NOTE ---
DATE: 10/27/2018 SUBJECTIVE: Ms. Hernandez is doing generally well. She is afebrile, blood pressure 122/46. She denies any nausea. She says she has passed some flatus. I would advance her diet to full liquids today. We will recheck her labs tomorrow. cc: MD Arnaldo Sanchez MD
[2018-10-27] MEDS: MORPHINE IV PRN ×2 (16:54→17:39)
[2018-10-27] MEDS: NORCO-7.5 PO PRN (20:32)
[2018-10-27] MEDS: LIPITOR PO SCH (20:32)
[2018-10-28] MEDS: ZOSYN 3.375 GM in NS 50 ML IV SCH ×4 (01:04→22:01)
[2018-10-28] MEDS: NORCO-7.5 PO PRN ×5 (01:07→21:59)
[2018-10-28 06:49] LABS: BASO# 0.04 X1000 (0.0-0.2); BASO% 0.4 % (0.0-0.8); EOS# 0.28 X1000 (0.0-0.7); EOS% 2.5 % (0.0-10.0); HEMATOCRIT 29.8 % (37.0-47.0); LYMPH# 1.13 X1000 (1.2-3.4); MCH 25.5 PG (27-31); MCHC 30.2 g/dL (33-37); MCV 84.4 FL (81-99); MONO# 0.63 X1000 (0.11-0.59); MONO% 5.6 % (1.7-9.3); MPV 9.2 FL (7.4-10.4); NEUT# 9.23 X1000 (1.4-6.5); NEUT% 81.5 % (42.2-75.2); PLT 300 X1000 (130-400); RBC 3.53 XMIL (4.2-5.4); RDW 18.1 % (11.5-14.5); WBC 11.31 X1000 (4.8-10.8)
[2018-10-28] MEDS ORDERED: SALINE LOCK IV FLUID XX ONE (08:01)
--- NOTE | 2018-10-28 08:15 | GENERAL SURGERY PROGRESS NOTE ---
DATE: 10/28/2018 It is 8 o'clock in the morning. Ms. Hernandez is doing generally well. She took her liquids okay yesterday. Her bowels did move so the plan will be to advance her diet and saline lock her IV. cc: MD Arnaldo Sanchez MD
[2018-10-28] MEDS: PERIDEX MT SCH ×2 (10:05→22:00)
[2018-10-28] MEDS: LOVENOX SUBQ SCH (10:05)
[2018-10-28] MEDS: LIPITOR PO SCH (22:00)
[2018-10-29] MEDS: NORCO-7.5 PO PRN ×2 (04:54→12:30)
[2018-10-29] MEDS: ZOSYN 3.375 GM in NS 50 ML IV SCH ×2 (04:55→09:11)
[2018-10-29] MEDS: LOVENOX SUBQ SCH (08:24)
[2018-10-29] MEDS: PERIDEX MT SCH ×2 (08:24→20:31)
--- NOTE | 2018-10-29 17:59 | GENERAL SURGERY PROGRESS NOTE ---
DATE: 10/29/2018 SUBJECTIVE: She is doing well. Bowels are functioning. She is tolerating a diet. Still weak, requiring some O2. She is on appropriate home medications. Pain controlled. She is on prophylactic Lovenox. She has been hep-locked. ASSESSMENT AND PLAN: We will get Physical Therapy to see the patient. Social Work. Hopefully will get her home in the next 24 hours pending her ability to mobilize. EXAMINATION: Her wound looked good. Her abdomen is soft. cc: Arnaldo Fine MD
[2018-10-29] MEDS: LIPITOR PO SCH (20:32)
[2018-10-30] MEDS: NORCO-7.5 PO PRN ×2 (01:35→19:57)
--- NOTE | 2018-10-30 07:32 | Diag Imaging Result Doc PS360 ---
EXAM: CHEST-PORTABLE HISTORY: fever TECHNIQUE: Portable chest single view COMPARISON: 10/25/2018 FINDINGS: The lungs are well expanded except for atelectasis in the right lung base. The heart is not enlarged. The vessels are not distended. There are no infiltrates. Small right-sided pleural effusion.. There are surgical clips in the left axilla. IMPRESSION: Right basilar atelectasis. Electronically signed by Giovanny Brown 10/30/2018 7:30 AM
[2018-10-30 08:09] LABS: HEMOGLOBIN 8.8 g/dL (12.0-16.0); MCH 24.4 PG (27-31); MCHC 30.3 g/dL (33-37); MCV 80.3 FL (81-99); MPV 8.6 FL (7.4-10.4); RBC 3.61 XMIL (4.2-5.4); RDW 17.4 % (11.5-14.5); WBC 6.52 X1000 (4.8-10.8)
[2018-10-30 08:25] LABS: AGAP 14; BUN 6 mg/dL (8-22); CALCIUM 8.1 mg/dL (8.8-10.2); CHLORIDE 101 mmol/L (98-107); COSMO 277; CREATININE 0.6 mg/dL (0.5-0.9); ESTIMATED GFR > 60; GLUCOSE 107 mg/dL (70-104); MAGNESIUM 1.7 mg/dL (1.5-2.7); POTASSIUM 2.8 mmol/L (3.5-5.1); SODIUM 140 mmol/L (136-145); TCO2 25 mmol/L (25-35)
[2018-10-30] MEDS ORDERED: MAGNESIUM SULFATE 2 GM/S.W.I. 2 GM/50 ML IVPB IV ONE (08:33)
[2018-10-30] MEDS: PERIDEX MT SCH ×3 (09:27→20:31)
[2018-10-30] MEDS: LOVENOX SUBQ SCH (09:27)
[2018-10-30] MEDS: POTASSIUM CHLORIDE 20 MEQ/SWI 20 MEQ/100 ML IVPB IV SCH ×2 (16:03→19:37)
[2018-10-30] MEDS ORDERED: NS 500 ML ONE (16:22)
[2018-10-30] MEDS ORDERED: POTASSIUM CHLORIDE 20 MEQ/SWI 20 MEQ/100 ML IVPB IV SCH (17:00)
[2018-10-30] MEDS: LIPITOR PO SCH ×2 (19:53→20:31)
[2018-10-31] MEDS ORDERED: NS 500 ML ONE (03:06)
[2018-10-31 04:18] LABS: URINE SOURCE CLEAN CATCH
[2018-10-31 04:38] LABS: BILIRUBIN URINE NEGATIVE (NEGATIVE); BLOOD URINE TRACE (NEGATIVE); COLOR YELLOW; GLUCOSE URINE NEGATIVE (NEGATIVE); KETONE URINE 100 mg/dL (NEGATIVE); LEUKOCYTES URINE NEGATIVE (NEGATIVE); NITRITE URINE NEGATIVE (NEGATIVE); PROTEIN URINE TRACE mg/dL (NEGATIVE); SP GRAVITY URINE 1.009; TURBIDITY URINE CLEAR (CLEAR); UR EPITHELIAL CELLS <10 /HPF (<10); URINE BACTERIA NEGATIVE /HPF; URINE CASTS NONE SEEN; URINE CRYSTALS CA OXALATE PRESENT; URINE RBC <10 /HPF (<10); URINE SMALL ROUND CELLS NONE SEEN; URINE WBC <10 /HPF (<10); URINE YEAST NONE SEEN; UROBILINOGEN URINE NORMAL (NORMAL)
[2018-10-31] MEDS: ZOFRAN IV PRN (07:23)
[2018-10-31] MEDS: NORCO-7.5 PO PRN (08:37)
[2018-10-31] MEDS: LOVENOX SUBQ SCH (08:37)
[2018-10-31] MEDS: PERIDEX MT SCH (08:37)
--- NOTE | 2018-10-31 13:29 | DISCHARGE SUMMARY ---
ADMISSION DATE: 10/25/2018 DISCHARGE DATE: SUBJECTIVE: She is doing well. She has had no further fevers or tachycardia. Bowels are functioning. No bleeding. She is ambulating with physical therapy and a walker. She is tolerating her diet. Her family is here with her. She is in good spirits and wants go home. OBJECTIVE: Pulse 95, blood pressure 149/55. General: She is alert. Abdomen: Soft. No tenderness over her incision. There is no lower extremity edema. She is on room air. White count was 6 yesterday, hematocrit was 29. Potassium was a little bit low but we repleted this and we gave her magnesium. Urinalysis was negative for leukocytes and white blood cells. Chest x-ray showed some atelectasis. ASSESSMENT/PLAN: An 83-year-old female status post cecectomy. Her incision is doing well. We will allow her to go home with the care of her family. We will see her in a week and take her surgical clips out. I have given her written and verbal instructions, and discussed her postoperative diet with her. She has no prescriptions but she can continue other home medications. cc: Arnaldo Fine MD
[2018-10-31 15:45] VITALS: BP 160/75
== END 2018-10-31 16:01 | disposition home or self-care (01) | DRG 907 ==
LOC: DIRADM 14:44 → 4N 15:04
PROVIDERS: ADMIT Surgery; ATTEND Surgery
CPT/HCPCS: 71010; 71045; 74022; 80048; 81001; 83735; 85025; 85027; 88307; 94761; 94799; 97116; 97162; 97530; A9270; C9290; J0131; J0330; J1170; J1650; J2270; J2405; J2543; J3010; J3475; J3480; J7040; J7120; S0020